=== PATIENT | male | born 1940 | race Caucasian/White ===

== ENCOUNTER 2020-09-20 08:19 | Day surgery (SDC) | payer MEDICARE, BC ==
[~2020-09-20] VITALS: Ht 172.7 cm; Wt 99.5 kg
[2020-09-20] MEDS ORDERED: QUET25TA PO (08:49)
[2020-09-20] MEDS ORDERED: LOVA40TA2 PO (08:49)
[2020-09-20] MEDS ORDERED: FURO-150 PO (08:49)
[2020-09-20] MEDS ORDERED: POLY17PO10 PO (08:49)
[2020-09-20] MEDS ORDERED: CLOT15CR73 TP (08:49)
[2020-09-20] MEDS ORDERED: [UNRECOGNIZED DRUG - CODE] (08:49)
[2020-09-20] MEDS ORDERED: ASPI-611 PO (08:49)
[2020-09-20] MEDS ORDERED: DOBU500I5 IV (08:49)
[2020-09-20] MEDS ORDERED: FAMO-128 PO (08:49)
[2020-09-20 09:00] VITALS: BP 107/67
[2020-09-20 09:50] VITALS: BP 96/64
[2020-09-20 10:05] VITALS: BP 92/65
[2020-09-20 10:20] VITALS: BP 94/63
[2020-09-20 10:35] VITALS: BP 97/52
== END 2020-09-20 11:16 | disposition home or self-care (01) ==
LOC: SSTAY O 08:19
PROVIDERS: ATTEND Radiology Diagnostic Radiology
DX: J90 Pleural effusion, not elsewhere classified (principal); E11.22 Type 2 diabetes mellitus with diabetic chronic kidney disease; N18.4 Chronic kidney disease, stage 4 (severe); I25.10 Atherosclerotic heart disease of native coronary artery without angina pectoris; F41.9 Anxiety disorder, unspecified; E66.9 Obesity, unspecified; Z68.33 Body mass index [BMI] 33.0-33.9, adult; Z95.1 Presence of aortocoronary bypass graft; Z95.810 Presence of automatic (implantable) cardiac defibrillator; Z98.890 Other specified postprocedural states; Z79.82 Long term (current) use of aspirin; Z79.899 Other long term (current) drug therapy
CPT/HCPCS: 32555

== ENCOUNTER 2020-09-22 15:30 | Emergency (ER) | payer MEDICARE, BC ==
[~2020-09-22] VITALS: Ht 172.7 cm; Wt 96.4 kg
[~2020-09-22 15:30] MED LIST: ASPI-611 PO; CLOT15CR73 TP; DOBU500I5 IV; FAMO-128 PO; FURO-150 PO; LOVA40TA2 PO; POLY17PO10 PO; QUET25TA PO; [UNRECOGNIZED DRUG - CODE]
--- NOTE | 2020-09-22 16:49 | NUR ---
PT WITH PICC LINE TO [place], INFUSING DOBUTAMINE. ATTEMPT X 2 FOR IV START L ARM, UNSUCCESSFUL, LAB IN TO DRAW BLOOD. PT PLACED ON MONITOR
[2020-09-22 17:29] LABS: BASOPHILS % (AUTO) 0.2 % (0-1); EOSINOPHILS # (AUTO) 0.2 X10'3 (0-0.9); EOSINOPHILS % (AUTO) 2.2 % (0-6); HEMATOCRIT 32.5 % (42.0-52.0); LYMPHOCYTES # (AUTO) 0.8 X10'3 (1.1-4.8); LYMPHOCYTES % (AUTO) 11.6 % (21-51); MEAN CORPUSCULAR HEMOGLOBIN 32.1 PG (27.0-31.0); MEAN CORPUSCULAR HGB CONC 33.7 g/dL (33.0-36.5); MEAN CORPUSCULAR VOLUME 95.2 FL (78-98); MEAN PLATELET VOLUME 8.3 FL (7.4-10.4); MONOCYTES # (AUTO) 0.8 X10'3 (0-0.9); MONOCYTES % (AUTO) 11.6 % (2-12); NEUTROPHILS # (AUTO) 5.2 X10'3 (1.8-7.7); NEUTROPHILS % (AUTO) 74.4 % (42-75); PLATELET COUNT 160 X10'3 (140-440); RED BLOOD COUNT 3.41 X10'6 (4.70-6.10)
[2020-09-22 17:36] LABS: ALANINE AMINOTRANSFERASE 17 U/L (12-78); ALBUMIN/GLOBULIN RATIO 0.7 (1.1-1.5); ALKALINE PHOSPHATASE 100 IU/L (46-116); ANION GAP 8 (8-16); ASPARTATE AMINO TRANSFERASE 17 U/L (10-37); BILIRUBIN,TOTAL 0.8 MG/DL (0.1-1.0); BLOOD UREA NITROGEN 30 MG/DL (7-18); BUN/CREATININE RATIO 15.8 (5.4-32.0); CALCIUM 8.9 MG/DL (8.5-10.1); CHLORIDE 98 MMOL/L (99-107); GLUCOSE 211 MG/DL (70-104); POTASSIUM 3.5 MMOL/L (3.5-5.1); SODIUM 140 MMOL/L (135-145); TOTAL CARBON DIOXIDE 34.1 MMOL/L (24-32); TOTAL PROTEIN 7.4 G/DL (6.4-8.2); eGFR 34 ML/MIN
[2020-09-22 18:30] VITALS: BP 102/61
== END 2020-09-22 18:32 | disposition home or self-care (01) ==
LOC: ER 15:31
DX: R06.02 Shortness of breath (principal); J44.9 Chronic obstructive pulmonary disease, unspecified; I50.9 Heart failure, unspecified; I11.0 Hypertensive heart disease with heart failure; Z79.82 Long term (current) use of aspirin; Z79.899 Other long term (current) drug therapy
CPT/HCPCS: 36415; 71045; 80053; 83605; 83880; 84145; 84484; 85025; 87040; 93005; 99285

== ENCOUNTER 2020-09-26 09:20 | Day surgery (SDC) | payer MEDICARE, BC ==
[~2020-09-26] VITALS: Ht 172.7 cm; Wt 99.3 kg
[2020-09-26 09:49] VITALS: BP 97/66
[2020-09-26] MEDS ORDERED: FURO80TA87 PO (09:55)
[2020-09-26] MEDS ORDERED: albumin 25% 100mL bottle x 1 IV PRN (09:55)
[2020-09-26 10:25] VITALS: BP 102/64
[2020-09-26 10:35] VITALS: BP 101/48
[2020-09-26 10:40] VITALS: BP 92/62
[2020-09-26 10:55] VITALS: BP 101/60
[2020-09-26 11:10] VITALS: BP 98/67
== END 2020-09-26 11:30 | disposition home or self-care (01) ==
LOC: SSTAY O 09:20
PROVIDERS: ATTEND Radiology Diagnostic Radiology
DX: J90 Pleural effusion, not elsewhere classified (principal); E11.22 Type 2 diabetes mellitus with diabetic chronic kidney disease; N18.4 Chronic kidney disease, stage 4 (severe); I25.10 Atherosclerotic heart disease of native coronary artery without angina pectoris; F41.9 Anxiety disorder, unspecified; E66.9 Obesity, unspecified; Z68.33 Body mass index [BMI] 33.0-33.9, adult; Z95.1 Presence of aortocoronary bypass graft; Z95.810 Presence of automatic (implantable) cardiac defibrillator; Z98.890 Other specified postprocedural states; Z79.899 Other long term (current) drug therapy; Z79.82 Long term (current) use of aspirin
CPT/HCPCS: 32555

== ENCOUNTER 2020-10-02 06:43 | Emergency (ER) | payer MEDICARE, BC ==
[~2020-10-02] VITALS: Ht 172.7 cm; Wt 98.2 kg
[~2020-10-02 06:43] MED LIST changes: -CLOT15CR73 TP; -DOBU500I5 IV; -FURO-150 PO; +FURO80TA87 PO; -[UNRECOGNIZED DRUG - CODE]
--- NOTE | 2020-10-02 07:06 | NUR ---
PT HAS CONTINUES DOBUTAMINE 5.6
[2020-10-02 11:00] VITALS: BP 102/64
--- NOTE | 2020-10-02 11:00 | NUR ---
IR AT BS FOR THORACENTISIS
[2020-10-02 11:09] VITALS: BP 114/62
--- NOTE | 2020-10-02 11:16 | NUR ---
THORACENTISIS FINISHED. 650ML RIGHT AND 500ML LEFT. PT RALHP WELL
[2020-10-02 12:20] VITALS: BP 104/68
== END 2020-10-02 12:13 | disposition home or self-care (01) ==
LOC: ER 06:45
DX: J90 Pleural effusion, not elsewhere classified (principal); I50.9 Heart failure, unspecified; Z79.01 Long term (current) use of anticoagulants; Z79.899 Other long term (current) drug therapy
CPT/HCPCS: 32555; 71045; 93005; 99285

== ENCOUNTER 2020-10-11 08:35 | Day surgery (SDC) | payer MEDICARE, BC ==
[~2020-10-11] VITALS: Ht 172.7 cm; Wt 103.7 kg
[2020-10-11] VITALS (8 sets, daily range): BP systolic 97–115; BP diastolic 60–75
[2020-10-11] MEDS ORDERED: albumin 25% 100mL bottle x 1 IV PRN (09:00)
[2020-10-11] MEDS ORDERED: DOBU500I5 IV (09:26)
== END 2020-10-11 11:25 | disposition home or self-care (01) ==
LOC: SSTAY O 08:35
PROVIDERS: ATTEND Radiology Vascular & Interventional Radiology
DX: J90 Pleural effusion, not elsewhere classified (principal); E11.22 Type 2 diabetes mellitus with diabetic chronic kidney disease; N18.4 Chronic kidney disease, stage 4 (severe); I25.10 Atherosclerotic heart disease of native coronary artery without angina pectoris; F41.9 Anxiety disorder, unspecified; E66.9 Obesity, unspecified; Z68.34 Body mass index [BMI] 34.0-34.9, adult; Z95.1 Presence of aortocoronary bypass graft; Z95.810 Presence of automatic (implantable) cardiac defibrillator; Z98.890 Other specified postprocedural states; Z79.82 Long term (current) use of aspirin; Z79.899 Other long term (current) drug therapy
CPT/HCPCS: 32555

== ENCOUNTER 2020-10-15 00:35 | Emergency (ER) | payer MEDICARE, BC ==
[~2020-10-15] VITALS: Ht 175.3 cm; Wt 100.0 kg
[~2020-10-15 00:35] MED LIST changes: +DOBU500I5 IV
[2020-10-15 01:26] LABS: BASOPHILS % (AUTO) 0.3 % (0-1); EOSINOPHILS # (AUTO) 0.1 X10'3 (0-0.9); EOSINOPHILS % (AUTO) 1.1 % (0-6); HEMATOCRIT 35.6 % (42.0-52.0); HEMOGLOBIN 11.6 g/dl (14.0-17.9); LYMPHOCYTES # (AUTO) 1.1 X10'3 (1.1-4.8); LYMPHOCYTES % (AUTO) 11.3 % (21-51); MEAN CORPUSCULAR HEMOGLOBIN 30.5 PG (27.0-31.0); MEAN CORPUSCULAR HGB CONC 32.6 g/dL (33.0-36.5); MEAN CORPUSCULAR VOLUME 93.7 FL (78-98); MEAN PLATELET VOLUME 7.6 FL (7.4-10.4); MONOCYTES % (AUTO) 10.7 % (2-12); NEUTROPHILS # (AUTO) 7.2 X10'3 (1.8-7.7); NEUTROPHILS % (AUTO) 76.6 % (42-75); PLATELET COUNT 151 X10'3 (140-440); RED CELL DISTRIBUTION WIDTH 16.2 % (11.5-14.5); WHITE BLOOD COUNT 9.4 X10'3 (4.5-11.0)
[2020-10-15 01:34] LABS: ALANINE AMINOTRANSFERASE 22 U/L (12-78); ALBUMIN 2.7 G/DL (3.4-5.0); ALBUMIN/GLOBULIN RATIO 0.5 (1.1-1.5); ALKALINE PHOSPHATASE 190 IU/L (46-116); ANION GAP 8 (8-16); ASPARTATE AMINO TRANSFERASE 24 U/L (10-37); BILIRUBIN,TOTAL 0.8 MG/DL (0.1-1.0); BLOOD UREA NITROGEN 45 MG/DL (7-18); BUN/CREATININE RATIO 21.1 (5.4-32.0); CALCIUM 8.9 MG/DL (8.5-10.1); CHLORIDE 91 MMOL/L (99-107); CREATININE 2.13 MG/DL (0.60-1.10); GLUCOSE 224 MG/DL (70-104); POTASSIUM 4.9 MMOL/L (3.5-5.1); SODIUM 126 MMOL/L (135-145); TOTAL CARBON DIOXIDE 27.4 MMOL/L (24-32); TOTAL PROTEIN 7.7 G/DL (6.4-8.2); eGFR 30 ML/MIN
[2020-10-15] MEDS ORDERED: LIDOcaine 1% W/epiNEPHrine 1:100,000 20ml vial SQ ONE (03:10)
[2020-10-15 05:26] VITALS: BP 111/78
[2020-10-19] MEDS ORDERED: MULT-227 PO (21:37)
== END 2020-10-15 05:31 | disposition home or self-care (01) ==
LOC: ER 00:35
DX: J90 Pleural effusion, not elsewhere classified (principal); I25.10 Atherosclerotic heart disease of native coronary artery without angina pectoris; I50.9 Heart failure, unspecified; E11.22 Type 2 diabetes mellitus with diabetic chronic kidney disease; N18.9 Chronic kidney disease, unspecified; Z95.5 Presence of coronary angioplasty implant and graft; Z98.890 Other specified postprocedural states
CPT/HCPCS: 32554; 32555; 36415; 71045; 76705; 80053; 85025; 93005; 99285

== ENCOUNTER 2020-10-28 09:17 | Day surgery (SDC) | payer MEDICARE, BC ==
[2020-10-28] VITALS (7 sets, daily range): BP systolic 92–104; BP diastolic 50–71
[~2020-10-28] VITALS: Ht 172.7 cm; Wt 103.9 kg
[~2020-10-28 09:17] MED LIST changes: -DOBU500I5 IV; -FAMO-128 PO; -POLY17PO10 PO; -QUET25TA PO
[2020-10-28] MEDS ORDERED: albumin 25% 100mL bottle x 1 IV PRN (09:40)
[2020-10-28] MEDS ORDERED: DOBU1000 IV (09:41)
== END 2020-10-28 11:05 | disposition home or self-care (01) ==
LOC: SSTAY O 09:17
PROVIDERS: ATTEND Radiology Diagnostic Radiology
DX: J90 Pleural effusion, not elsewhere classified (principal); N18.4 Chronic kidney disease, stage 4 (severe); E11.22 Type 2 diabetes mellitus with diabetic chronic kidney disease; F41.9 Anxiety disorder, unspecified; I25.10 Atherosclerotic heart disease of native coronary artery without angina pectoris; E66.9 Obesity, unspecified; Z88.8 Allergy status to other drugs, medicaments and biological substances; Z79.82 Long term (current) use of aspirin; Z79.899 Other long term (current) drug therapy; Z95.1 Presence of aortocoronary bypass graft; Z98.890 Other specified postprocedural states
CPT/HCPCS: 32555

== ENCOUNTER 2020-11-04 08:32 | Day surgery (SDC) | payer MEDICARE, BC ==
[~2020-11-04] VITALS: Ht 172.7 cm; Wt 109.6 kg
[~2020-11-04 08:32] MED LIST changes: +DOBU1000 IV
[2020-11-04 08:55] VITALS: BP 94/63
[2020-11-04] MEDS ORDERED: FURO-150 PO (09:05)
[2020-11-04] MEDS ORDERED: albumin 25% 100mL bottle x 1 IV PRN (09:10)
[2020-11-04 10:15] VITALS: BP 98/64
[2020-11-04 10:22] VITALS: BP 92/60
[2020-11-04 10:35] VITALS: BP 99/52
[2020-11-04 10:50] VITALS: BP 95/64
[2020-11-04] MEDS ORDERED: POLY119P2 PO (14:20)
[2020-11-05] MEDS ORDERED: CEFD300C3 PO (10:46)
== END 2020-11-04 10:55 | disposition short-term general hospital (02) ==
LOC: SSTAY O 08:32
PROVIDERS: ATTEND Radiology Vascular & Interventional Radiology
DX: J90 Pleural effusion, not elsewhere classified (principal); E11.22 Type 2 diabetes mellitus with diabetic chronic kidney disease; N18.4 Chronic kidney disease, stage 4 (severe); I50.9 Heart failure, unspecified; F41.9 Anxiety disorder, unspecified; E66.9 Obesity, unspecified; Z68.36 Body mass index [BMI] 36.0-36.9, adult; I25.10 Atherosclerotic heart disease of native coronary artery without angina pectoris; Z95.1 Presence of aortocoronary bypass graft; Z95.810 Presence of automatic (implantable) cardiac defibrillator; Z98.890 Other specified postprocedural states
CPT/HCPCS: 32555; 49083